=== PATIENT | female | born 1985 | race Caucasian/White ===

== ENCOUNTER 2018-04-19 20:38 | Emergency (ER) | payer OTHER ==
[~2018-04-19] VITALS: Ht 177.8 cm; Wt 68.9 kg
[2018-04-19 20:53] VITALS: BP 118/75
[2018-04-19] MEDS ORDERED: DEXAMETHASONE SOD PHOS 10 MG/ML VIAL IV ONE (21:15)
[2018-04-19] MEDS ORDERED: hydrOXYzine HCL 25 MG TABLET PO STA (21:17)
[2018-04-19] MEDS ORDERED: HYDR25CA PO (21:18)
[2018-04-19] MEDS ORDERED: METH4TAB2 PO (21:18)
--- NOTE | 2018-04-19 21:18 | PHYS DOC ---
Past History Past Medical History: Depression Past Surgical History: No Surgical History Alcohol Use: None Drug Use: None Adult General Chief Complaint Chief Complaint: INSECT BITE HPI HPI Patient is a 33 year old female who presents with complaint of insect bites. Patient states that she started noting bites to her skin over the past 2-3 days. Patient states that she had attended a concert in light in the [place] prior to onset of symptoms. Patient states that she has been noticing new lesions over the past few days. Patient states that she has been taking Zyrtec and Benadryl at home with no relief in symptoms. The patient states she also noticed hives over the past 24 hours along her back and lower extremities. Due to the itching and continued symptoms the patient came to the emergency department for evaluation. She is also concerned that the bites may be infected as she is noticing clear drainage from the lesions. Denies any fevers, vomiting , shortness of breath, or abdominal pain. Review of Systems Review of Systems Constitutional: Denies fever or chills [] Eyes: Denies change in visual acuity, redness, or eye pain [] HENT: Denies nasal congestion or sore throat [] Respiratory: Denies cough or shortness of breath [] Cardiovascular: Denies chest pain or edema[] GI: Denies abdominal pain, nausea, vomiting, bloody stools or diarrhea [] : Denies dysuria or hematuria [] Musculoskeletal: Denies back pain or joint pain [] Integument: Insect bites, hives[] Neurologic: Denies headache, focal weakness or sensory changes [] All other systems were reviewed and found to be within normal limits, except as documented in this note. Allergies Allergies Allergies Coded Allergies Type Severity Reaction Last Updated Verified No Known Drug Allergies 04/19/18 No Physical Exam Physical Exam Constitutional: Alert, afebrile, vital signs stable, appears in minimal discomfort. [] HENT: Normocephalic, atraumatic, bilateral external ears normal, oropharynx moist, no oral exudates, nose normal. [] Eyes: PERRLA, EOMI, conjunctiva normal, no discharge. [] Neck: Normal range of motion, no tenderness, supple, no stridor. [] Cardiovascular:Heart rate regular rhythm, no murmur [] Lungs & Thorax: Bilateral breath sounds clear to auscultation [] Abdomen: Bowel sounds normal, soft, no tenderness, no masses, no pulsatile masses. [] Skin: Multiple insect bites along bilateral upper and lower extremities, urticarial lesions present on the lower back and lower extremities, no purulence , no fluctuance. [] Back: No tenderness, no CVA tenderness. [] Extremities: No tenderness, no cyanosis, no clubbing, ROM intact, no edema. [] Neurologic: Alert and oriented X 3, normal motor function, normal sensory function, no focal deficits noted. [] Current Patient Data Vital Signs Vital Signs Date Time Temp Pulse Resp B/P (MAP) Pulse Ox O2 Delivery O2 Flow Rate FiO2 04/19/18 20:53 98.2 90 18 97 Room Air Lab Results Not performed EKG EKG Not performed[] Radiology/Procedures Radiology/Procedures Not performed[] Course & Med Decision Making Course & Med Decision Making Pertinent Labs and Imaging studies reviewed. (See chart for details) Insect bites do not appear to be actively infected. Patient was administered IM Decadron and oral Vistaril in the emergency department. The patient will be given prescriptions for Vistaril and Medrol Dosepak advised the patient to continue Medrol Dosepak 2 days from today if symptoms are not improving. Advised return to emergency department for any worsening symptoms. Patient was understanding and agreement with treatment plan. Dragon Disclaimer Dragon Disclaimer This electronic medical record was generated, in whole or in part, using a voice recognition dictation system. Departure Departure: Impression: Primary Impression: Insect bites Additional Impression: Hives Disposition: 01 HOME, SELF-CARE Condition: IMPROVED Patient Instructions: Hives, Insect Bite Additional Instructions: If your symptoms have not resolved in 2 days, it is recommended that you start the Medrol Dosepak prescribed to you at today's visit. Follow up with her primary doctor in 5-7 days if symptoms have not improved. Return to the emergency department for any worsening symptoms. Scripts Hydroxyzine Pamoate (VISTARIL) 25 Mg Capsule 25 MG PO Q6HRS PRN for ITCHING, #30 CAP Prov: FELICIANO ALMANZA MD 04/19/18 Methylprednisolone (MEDROL) 4 Mg Tab.ds.pk 1 PKG PO UD, #1 PKG Prov: FELICIANO ALMANZA MD 04/19/18 Problem Qualifiers Primary Impression: Insect bites Encounter type: initial encounter Qualified Codes: W57.XXXA - Bitten or stung by nonvenomous insect and other nonvenomous arthropods, initial encounter FELICIANO ALMANZA MD Apr 19, 2018 21:18
[2018-04-19] MEDS ORDERED: DEXAMETHASONE SOD PHOS 10 MG/ML VIAL IM ONE (21:30)
== END 2018-04-19 21:26 | disposition home or self-care (01) ==
LOC: ER 20:38
DX: S30.860A Insect bite (nonvenomous) of lower back and pelvis, initial encounter (principal); S80.862A Insect bite (nonvenomous), left lower leg, initial encounter; S80.861A Insect bite (nonvenomous), right lower leg, initial encounter; L50.9 Urticaria, unspecified; W57.XXXA Bitten or stung by nonvenomous insect and other nonvenomous arthropods, initial encounter; Y93.89 Activity, other specified; Y99.8 Other external cause status; Y92.89 Other specified places as the place of occurrence of the external cause
CPT/HCPCS: 96372; 99283; J1100

== ENCOUNTER 2018-04-25 13:25 | Emergency (ER) | payer OTHER ==
[~2018-04-25] VITALS: Ht 177.8 cm; Wt 68.9 kg
[~2018-04-25 13:25] MED LIST: HYDR25CA PO; METH4TAB2 PO
[2018-04-25] MEDS ORDERED: HYDR25TA PO (14:50)
[2018-04-25] MEDS ORDERED: PRED20TA PO (14:50)
[2018-04-25] MEDS ORDERED: PERM60CR12 TP (14:50)
--- NOTE | 2018-04-25 14:50 | PHYS DOC ---
Past History Past Medical History: Depression Past Surgical History: Tubal ligation Alcohol Use: Rarely Drug Use: None Adult General Chief Complaint Chief Complaint: SKIN RASH/ABSCESS HPI HPI The patient is a 33-year-old female who presents for an itchy rash. She states that she was seen here a few days ago for a similar rash which was treated and then resolved. The patient that her rash appears to be consistent with bedbug bites and she does tell me that she has recently been sleeping in a new bed at a friend's house. She states that no one else is getting similar lesions on her skin. She says the itching is driving her crazy. She has not seen any bugs. Her daughter oftentimes sleeps in her bed and that she has not had any lesions. Review of Systems Review of Systems Constitutional: Denies fever or chills [] Eyes: Denies change in visual acuity, redness, or eye pain [] HENT: Denies nasal congestion or sore throat [] Respiratory: Denies cough or shortness of breath [] Cardiovascular: No additional information not addressed in HPI [] GI: Denies abdominal pain, nausea, vomiting, bloody stools or diarrhea [] : Denies dysuria or hematuria [] Musculoskeletal: Denies back pain or joint pain [] Integument: Denies rash or skin lesions [] +pruritic skin lesions Neurologic: Denies headache, focal weakness or sensory changes [] Endocrine: Denies polyuria or polydipsia [] All other systems were reviewed and found to be within normal limits, except as documented in this note. Allergies Allergies Allergies Coded Allergies Type Severity Reaction Last Updated Verified No Known Drug Allergies 04/19/18 No Physical Exam Physical Exam Constitutional: Well developed, well nourished, no acute distress, non-toxic appearance. [] HENT: Normocephalic, atraumatic, bilateral external ears normal, oropharynx moist, no oral exudates, nose normal. [] Eyes: PERRLA, EOMI, conjunctiva normal, no discharge. [] Neck: Normal range of motion, no tenderness, supple, no stridor. [] Cardiovascular:Heart rate regular rhythm, no murmur [] Lungs & Thorax: Bilateral breath sounds clear to auscultation [] Abdomen: Bowel sounds normal, soft, no tenderness, no masses, no pulsatile masses. [] Skin: Warm, dry, no erythema, no rash. [] many erythematous and slightly raised skin lesions noted on all extremities and back, several of these are in a linear pattern suggesting possible bed bugs no petechiae, no bleeding or drainage, no sign of abscess, some of these lesions are excoriated from the patient itching them. Back: No tenderness, no CVA tenderness. [] Extremities: No tenderness, no cyanosis, no clubbing, ROM intact, no edema. [] Neurologic: Alert and oriented X 3, normal motor function, normal sensory function, no focal deficits noted. [] Psychologic: Affect normal, judgement normal, mood normal. [] Current Patient Data Vital Signs Vital Signs Date Time Temp Pulse Resp B/P (MAP) Pulse Ox O2 Delivery O2 Flow Rate FiO2 04/25/18 13:53 98.6 97 20 95 Room Air EKG EKG [] Radiology/Procedures Radiology/Procedures [] Course & Med Decision Making Course & Med Decision Making Pertinent Labs and Imaging studies reviewed. (See chart for details) @1440 - explained to the patient that I'm concerned that these could be bedbug bites and recommended that she contact a extermination company to evaluate the home. I will prescribe the patient permethrin cream which can sometimes help with bedbug bites although I do not see any evidence of scabies at this time. She'll also go home with a prescription for hydroxyzine and Pepcid as well as steroids. Dragon Disclaimer Dragon Disclaimer This electronic medical record was generated, in whole or in part, using a voice recognition dictation system. Departure Departure: Impression: Primary Impression: Skin lesion Additional Impressions: Pruritic rash Insect bite Disposition: 01 HOME, SELF-CARE Condition: STABLE Referrals: PCP,NO (PCP) Patient Instructions: Bedbugs, Rash Additional Instructions: Take the medication as prescribed. Return to the ER for new or worsening symptoms. Follow up with a doctor on the list provided within the next 1-2 days. Return to the ER immediately for new or worsening symptoms. As discussed he may want to have an cad intern come evaluate the property to see if there is any evidence of bedbugs. Scripts Prednisone (PREDNISONE) 20 Mg Tablet 1 TAB PO BID for 7 Days, #14 TAB Prov: HOLLIS BREAUX DO 04/25/18 Hydroxyzine Hcl (HYDROXYZINE HCL) 25 Mg Tablet 1 TAB PO TID, #20 TAB Prov: HOLLIS BREAUX DO 04/25/18 Permethrin (PERMETHRIN) 60 Gm Cream..g. 60 GM TP 1X for 1 Day, EACH Apply from neck down, leave on for 8-12 hours, then rinse off. May reapply in 7 days. Prov: HOLLIS BREAUX DO 04/25/18 Problem Qualifiers HOLLIS BREAUX DO Apr 25, 2018 14:50
[2018-04-25] MEDS ORDERED: DEXAMETHASONE SOD PHOS 10 MG/ML VIAL IM ONE (15:10)
[2018-04-25] MEDS ORDERED: hydrOXYzine HCL 25 MG TABLET PO ONE (15:10)
[2018-04-25] MEDS ORDERED: FAMOTIDINE 20 MG TABLET PO ONE (15:10)
[2018-04-25 15:25] VITALS: BP 126/80
== END 2018-04-25 15:27 | disposition home or self-care (01) ==
LOC: ER 13:25
DX: S80.862A Insect bite (nonvenomous), left lower leg, initial encounter (principal); S80.861A Insect bite (nonvenomous), right lower leg, initial encounter; S40.862A Insect bite (nonvenomous) of left upper arm, initial encounter; S40.861A Insect bite (nonvenomous) of right upper arm, initial encounter; L29.9 Pruritus, unspecified; W57.XXXA Bitten or stung by nonvenomous insect and other nonvenomous arthropods, initial encounter; Y93.89 Activity, other specified; Y99.8 Other external cause status; Y92.89 Other specified places as the place of occurrence of the external cause
CPT/HCPCS: 96372; 99283; J1100

== ENCOUNTER 2018-12-15 15:23 | Emergency (ER) | payer OTHER ==
[~2018-12-15] VITALS: Ht 175.3 cm; Wt 70.3 kg
[~2018-12-15 15:23] MED LIST changes: +HYDR25TA PO; +PERM60CR12 TP; +PRED20TA PO
[2018-12-15 15:30] VITALS: BP 139/88
[2018-12-15] MEDS ORDERED: MUPI15CR TP (16:21)
[2018-12-15] MEDS ORDERED: CEPH-264 PO (16:21)
[2018-12-15] MEDS ORDERED: HYDR25TA PO (16:21)
[2018-12-15] MEDS ORDERED: NAPR-683 PO (16:21)
--- NOTE | 2018-12-15 16:21 | PHYS DOC ---
Past History Past Medical History: Depression Past Surgical History: Additional Smoking Information: 1 PPD Alcohol Use: None Drug Use: None Adult General Chief Complaint Chief Complaint: SKIN RASH/ABSCESS HPI HPI Patient is a 33 year old female who presents with complaining of skin rash. Patient states she had frequent episodes of impetigo in her face and neck and had another lesion in her nose for the last 2 days with leaking clear yellow discharge and itching and pain. Patient denies fever and chills, injury, , using the right. Patient states her last tetanus vaccination was about one year ago. Review of Systems Review of Systems Constitutional: Denies fever or chills [] Eyes: Denies change in visual acuity, redness, or eye pain [] HENT: Denies nasal congestion or sore throat [] Respiratory: Denies cough or shortness of breath [] Cardiovascular: No additional information not addressed in HPI [] GI: Denies abdominal pain, nausea, vomiting, bloody stools or diarrhea [] : Denies dysuria or hematuria [] Musculoskeletal: Denies back pain or joint pain [] Integument: Denies rash, reports skin lesions [] Neurologic: Denies headache, focal weakness or sensory changes [] Endocrine: Denies polyuria or polydipsia [] All other systems were reviewed and found to be within normal limits, except as documented in this note. Allergies Allergies Allergies Coded Allergies Type Severity Reaction Last Updated Verified No Known Drug Allergies 04/19/18 No Physical Exam Physical Exam Constitutional: Well nourished, mild distress, non-toxic appearance. [] HENT: Normocephalic, atraumatic Eyes: PERRLA, EOMI, conjunctiva normal, no discharge. [] Neck: Normal range of motion, no tenderness, supple, no stridor. [] Cardiovascular: Tachycardia, no murmur [] Lungs & Thorax: Bilateral breath sounds clear to auscultation [] Skin: Warm, dry, 5 x 5 cm area of impetigo in right side of posterior neck with oropharynx clear liquids without sign of abscess multiple scars in her face and neck Back: No tenderness, no CVA tenderness. [] Extremities: No tenderness, no cyanosis, no clubbing, ROM intact, no edema. [] Neurologic: Alert and oriented X 3, normal motor function, normal sensory function, no focal deficits noted. [] Psychologic: Affect anxious, judgement normal, mood normal, looks under influence of drug. Current Patient Data Vital Signs Vital Signs Date Time Temp Pulse Resp B/P (MAP) Pulse Ox O2 Delivery O2 Flow Rate FiO2 12/15/18 15:30 98.0 107 20 100 Room Air EKG EKG [] Radiology/Procedures Radiology/Procedures [] Course & Med Decision Making Course & Med Decision Making discharge: I've spoken with the patient and/or caregivers. I've explained the patient's condition, diagnosis and treatment plan based on information available to me at this time. I've answered the patient's and/or caregivers questions and addressed any concerns. The patient and/or caregivers have a good understanding the patient's diagnosis, condition and treatment plan as can be expected at this point. Vital signs have been stabilized. The patient's condition is stable for discharge from the emergency department. The patient will pursue further outpatient evaluation with her primary care provider or other designated consulting physician as outlined in the discharge instructions. Patient and/or caregivers are agreeable to this plan of care and follow-up instructions have been explained in detail. The patient and/or caregivers have received these instructions in written format and expressed understanding of these discharge instructions. The patient and her caregivers are aware that if any significant change in condition or worsening of symptoms should prompt him to immediately return to this of the closest emergency department. If an emergent department is not readily available I would encourage him to call 911. Herbert Disclaimer Dragon Disclaimer This electronic medical record was generated, in whole or in part, using a voice recognition dictation system. 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 1 REFUGIO TP TID for skin infection, #30 GM Prov: MERI GARCIA MD 12/15/18 Cephalexin (KEFLEX) 500 Mg Capsule 2 CAP PO Q12HR for infection, #28 CAP Prov: MERI GARCIA MD 12/15/18 Problem Qualifiers MERI GARCIA MD Dec 15, 2018 16:21
== END 2018-12-15 16:26 | disposition home or self-care (01) ==
LOC: ER 15:23
DX: L01.00 Impetigo, unspecified (principal); F32.9 Major depressive disorder, single episode, unspecified; F17.200 Nicotine dependence, unspecified, uncomplicated; Z71.6 Tobacco abuse counseling
CPT/HCPCS: 99283

== ENCOUNTER 2018-12-29 09:13 | Emergency (ER) | payer OTHER ==
[~2018-12-29] VITALS: Ht 175.3 cm; Wt 66.3 kg
[2018-12-29 09:13] VITALS: BP 128/100
[~2018-12-29 09:13] MED LIST changes: +CEPH-264 PO; +MUPI15CR TP; +NAPR-683 PO
--- NOTE | 2018-12-29 10:34 | PHYS DOC ---
Past History Past Medical History: Other Past Surgical History: No Surgical History Alcohol Use: None Drug Use: None Adult General Chief Complaint Chief Complaint: SKIN RASH/ABSCESS HPI HPI 33-year-old female presents with rash on her face and was tonight. The patient has had 2 previous exacerbation similar to this there were diagnosed as impetigo. She is taken Keflex and doxycycline in the past which has improved the symptoms. After about a month it seems to come back. Each time the outbreak seems to be worse. This time, she has open lesions ago down the back of her neck to her upper back. It is very pruritic and somewhat painful. They have been weeping a clear fluid. She has felt feverish, but has not measured a fever. She is currently on Keflex. Review of Systems Review of Systems Constitutional: Denies fever or chills [] Eyes: Denies change in visual acuity, redness, or eye pain [] HENT: Denies nasal congestion or sore throat [] Respiratory: Denies cough or shortness of breath [] Cardiovascular: No additional information not addressed in HPI [] GI: Denies abdominal pain, nausea, vomiting, bloody stools or diarrhea [] : Denies dysuria or hematuria [] Musculoskeletal: Denies back pain or joint pain [] Integument: Rash[] Neurologic: Denies headache, focal weakness or sensory changes [] Endocrine: Denies polyuria or polydipsia [] All other systems were reviewed and found to be within normal limits, except as documented in this note. Allergies Allergies Allergies Coded Allergies Type Severity Reaction Last Updated Verified No Known Drug Allergies 04/19/18 No Physical Exam Physical Exam Constitutional: Well developed, well nourished, no acute distress, non-toxic appearance. [] HENT: Normocephalic, atraumatic, bilateral external ears normal, oropharynx moist, no oral exudates, nose normal. [] Eyes: PERRLA, EOMI, conjunctiva normal, no discharge. [] Neck: Normal range of motion, no tenderness, supple, no stridor. Swollen anterior and posterior cervical lymph nodes, worse on the right [] Cardiovascular:Heart rate regular rhythm, no murmur [] Lungs & Thorax: Bilateral breath sounds clear to auscultation [] Abdomen: Bowel sounds normal, soft, no tenderness, no masses, no pulsatile masses. [] Skin: Erythematous weeping patches on the patient's face and neck in various stages of healing. Some have scabbing.[] Back: No tenderness, no CVA tenderness. [] Extremities: No tenderness, no cyanosis, no clubbing, ROM intact, no edema. [] Neurologic: Alert and oriented X 3, normal motor function, normal sensory function, no focal deficits noted. [] Psychologic: Affect normal, judgement normal, mood normal. [] Current Patient Data Vital Signs Vital Signs Date Time Temp Pulse Resp B/P (MAP) Pulse Ox O2 Delivery O2 Flow Rate FiO2 12/29/18 09:13 97.7 90 22 100 Room Air EKG EKG [] Radiology/Procedures Radiology/Procedures [] Course & Med Decision Making Course & Med Decision Making Pertinent Labs and Imaging studies reviewed. (See chart for details) I went ahead and give the patient 1 g of Rocephin IM in the ED. I will discharge her with Keflex and doxycycline for 10 days. A culture was sent to the lab and is pending. I have advised the patient make an appointment with dermatology regardless whether or not she gets better in the next few days. She is stable for discharge at this time. [] Dragon Disclaimer Dragon Disclaimer This electronic medical record was generated, in whole or in part, using a voice recognition dictation system. Departure Departure: Impression: Primary Impression: Bullous impetigo Disposition: 01 HOME, SELF-CARE Condition: STABLE Referrals: PCP,NO (PCP) Patient Instructions: Impetigo Scripts Cephalexin (KEFLEX) 500 Mg Capsule 1 CAP PO TID for infection, #30 CAP Prov: CLAUDETTE FINLEY DO 12/29/18 Doxycycline Hyclate (DOXYCYCLINE HYCLATE) 100 Mg Capsule 1 CAP PO BID for infection, #20 CAP Prov: CLAUDETTE FINLEY DO 12/29/18 CLAUDETTE FINLEY DO Dec 29, 2018 10:34
[2018-12-29 10:46] LABS: BASO # 0.1 x10^3/uL (0.0-0.2); BASO % 1 % (0-3); EOS # 0.4 x10^3/uL (0.0-0.7); EOS % 5 % (0-3); HEMATOCRIT 43.1 % (36.0-47.0); HEMOGLOBIN 14.1 g/dL (12.0-15.5); LYMPH # 2.1 x10^3/uL (1.0-4.8); LYMPH % 28 % (24-48); MEAN CORPUSCULAR HEMOGLOBIN 30 pg (25-35); MEAN CORPUSCULAR HGB CONC 33 g/dL (31-37); MEAN CORPUSCULAR VOLUME 90 fL (79-100); MONO # 0.7 x10^3/uL (0.0-1.1); MONO % 9 % (0-9); NEUT # 4.4 x10^3uL (1.8-7.7); NEUT % 57 % (31-73); PLATELET COUNT 242 x10^3/uL (140-400); RED BLOOD COUNT 4.77 x10^6/uL (3.50-5.40); RED CELL DISTRIBUTION WIDTH 13.9 % (11.5-14.5); WHITE BLOOD COUNT 7.8 x10^3/uL (4.0-11.0)
[2018-12-29 11:21] LABS: ALBUMIN 3.7 g/dL (3.4-5.0); ALBUMIN/GLOBULIN RATIO 1.2 (1.0-1.7); CALCIUM 8.7 mg/dL (8.5-10.1); CREATININE 0.6 mg/dL (0.6-1.0); GFR 115.1; POTASSIUM 3.5 mmol/L (3.5-5.1); TOTAL BILIRUBIN 0.5 mg/dL (0.2-1.0); TOTAL PROTEIN 6.7 g/dL (6.4-8.2)
[2018-12-29] MEDS ORDERED: LIDOCAINE 1% Multi-Dose 20 ML VIAL. ONE (11:27)
[2018-12-29] MEDS ORDERED: cefTRIAXone IM 1 GM VIAL IM ONE (11:45)
[2018-12-29] MEDS ORDERED: DOXY100C2 PO (12:12)
[2018-12-29] MEDS ORDERED: CEPH-264 PO (12:12)
== END 2018-12-29 12:17 | disposition home or self-care (01) ==
LOC: ER 09:13
DX: L01.03 Bullous impetigo (principal)
CPT/HCPCS: 36415; 80053; 85025; 87070; 96372; 99283; J0696; 87186